=== PATIENT | female | born 1980 | race Caucasian/White ===

== ENCOUNTER 2018-04-15 17:11 | Observation (INO) | payer OTHER ==
[~2018-04-15] VITALS: Ht 165 cm; Wt 94.3 kg
[2018-04-18 15:02] VITALS: BP 133/77
[2018-04-18] MEDS ORDERED: PREN1TAB80 PO (15:02)
== END 2018-04-18 17:30 | disposition home or self-care (01) ==
LOC: 4S 04-18 14:21
PROVIDERS: ADMIT Obstetrics & Gynecology; ATTEND Obstetrics & Gynecology
DX: O62.9 Abnormality of forces of labor, unspecified (principal); O09.523 Supervision of elderly multigravida, third trimester; Z3A.38 38 weeks gestation of pregnancy

== ENCOUNTER 2018-04-19 02:05 | Inpatient (IN) | payer OTHER ==
[~2018-04-19] VITALS: Ht 165 cm; Wt 94.3 kg
[~2018-04-19 02:05] MED LIST: PREN1TAB80 PO
[2018-04-19] MEDS ORDERED: RINGERS SOLUTION,LACTATED 1,000 ML IV SCH (02:23)
[2018-04-19] MEDS ORDERED: OXYTOCIN 30 UNITS/LACT RINGERS 500 ML IV ONE (02:23)
[2018-04-19] MEDS ORDERED: RINGERS SOLUTION,LACTATED 1,000 ML IV PRN (02:23)
[2018-04-19] MEDS ORDERED: METOCLOPRAMIDE HCL 5 MG/ML 2 ML VIAL IVP PRN (02:30)
[2018-04-19] MEDS ORDERED: CITRIC ACID/SODIUM CITRATE 30 ML SOLUTION UDCUP PO PRN (02:30)
[2018-04-19 02:39] VITALS: BP 133/71
[2018-04-19 02:49] LABS: BASOPHILS % (AUTO) 0.3 % (0.0-2.0); EOSINOPHILS % (AUTO) 0.9 % (1.0-6.0); LYMPHOCYTES # (AUTO) 2.2 K/uL (1.0-4.8); LYMPHOCYTES % (AUTO) 13.9 % (22.0-44.0); MEAN CORPUSCULAR HEMOGLOBIN 31.2 pg (26.0-34.0); MEAN CORPUSCULAR VOLUME 89 fL (80-100); MONOCYTES # (AUTO) 1.2 K/uL (0.1-1.0); MONOCYTES % (AUTO) 7.7 % (2.0-9.0); NEUTROPHILS # (AUTO) 12.5 K/uL (1.8-7.7); NEUTROPHILS % (AUTO) 77.2 % (40.0-70.0); PLATELET COUNT (AUTO)-OB 223 K/uL (150-450); RED BLOOD CELL COUNT(AUTO) 4.16 MIL/uL (4.00-5.20); RED CELL DISTRIBUTION WIDTH 13.8 % (11.5-14.5)
[2018-04-19] MEDS ORDERED: ROPIVACAINE HCL/PF 0.2% 100 ML ED ONE (03:05)
[2018-04-19] MEDS ORDERED: LIDOCAINE/PF 2% 5 ML VIAL ONE (03:05)
[2018-04-19] MEDS ORDERED: DiphenhydrAMINE HCL 50 MG/ML VIAL IVP PRN (03:30)
[2018-04-19] MEDS ORDERED: ROPIVACAINE HCL/PF 0.2% 100 ML ED PRN (03:30)
[2018-04-19] MEDS ORDERED: ONDANSETRON HCL 4 MG/2 ML VIAL IVP PRN (03:30)
[2018-04-19] MEDS ORDERED: NALBUPHINE HCL 10 MG/ML VIAL IVP PRN (03:30)
[2018-04-19] MEDS ORDERED: RINGERS SOLUTION,LACTATED 1,000 ML IV ONE (04:09)
[2018-04-19] MEDS ORDERED: LANOLIN 7 GM OINTMENT TP PRN (04:15)
[2018-04-19] MEDS ORDERED: MEASLES/MUMPS/RUBELLA VACCINE, LIVE 0.5 ML/VIAL SQ ONE (04:15)
[2018-04-19] MEDS ORDERED: BENZOCAINE 20%/MENTHOL 56 GM SPRAY CANISTER TP PRN (04:15)
[2018-04-19] MEDS ORDERED: GLYCERIN/WITCH HAZEL LEAF 40 PADS JAR TP PRN (04:15)
[2018-04-19] MEDS ORDERED: OxyCODONE HCL/ACETAMINOPHEN 5-325 MG TABLET PO PRN ×2 (04:15)
[2018-04-19] MEDS: IBUPROFEN 600 MG TABLET PO PRN ×2 (06:54→21:13)
[2018-04-19] MEDS ORDERED: OXYGEN THERAPY IH SCH (08:00)
[2018-04-19] MEDS: MAGNESIUM HYDROXIDE SUSPENSION 30 ML UDCUP PO SCH ×2 (09:27→21:13)
[2018-04-19 18:39] VITALS: BP 120/66
[2018-04-20] MEDS: IBUPROFEN 600 MG TABLET PO PRN (08:04)
[2018-04-20] MEDS ORDERED: IBUP-2071 PO (08:52)
[2018-04-20] MEDS ORDERED: DSS100 PO (08:54)
== END 2018-04-20 10:25 | disposition home or self-care (01) | DRG 807 ==
LOC: 4S 02:05 → OBSVTOIN 02:05
PROVIDERS: ADMIT Obstetrics & Gynecology; ATTEND Obstetrics & Gynecology
PROC: 10E0XZZ Delivery of Products of Conception, External Approach (ICD-10-PCS; principal; 2018-04-19)
PROC: 3E0R3BZ Introduction of Anesthetic Agent into Spinal Canal, Percutaneous Approach (ICD-10-PCS; 2018-04-19)
PROC: 00HU33Z Insertion of Infusion Device into Spinal Canal, Percutaneous Approach (ICD-10-PCS; 2018-04-19)
DX: O77.0 Labor and delivery complicated by meconium in amniotic fluid (principal); Z37.0 Single live birth; Z3A.39 39 weeks gestation of pregnancy
CPT/HCPCS: 85461; 86850; 86900; 86901; J2590; J2795; J3490; J7120